=== PATIENT | female | born 1960 | race African-American/Black ===

== ENCOUNTER 2016-09-06 11:55 | Emergency (ER) | payer MEDICAID ==
[~2016-09-06] VITALS: Ht 160 cm; Wt 128.8 kg
[~2016-09-06 11:55] MED LIST: AMLODIPINE BES2.5 MG ORAL; IBUPROFEN600 MG ORAL
[2016-09-06] MEDS ORDERED: Acetaminophen 500mg (ES) tab ORAL ONE (12:45)
[2016-09-06] MEDS ORDERED: Ketorolac 60mg Inj IM ONE (12:45)
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
[2016-09-06] MEDS ORDERED: TYLENOL EXTRA500 MG ORAL (13:52)
[2016-09-06] MEDS ORDERED: CYCLOBENZAPRINE10 MG ORAL (13:52)
[2016-09-06 14:03] VITALS: BP 120/80
--- NOTE | 2016-09-09 15:53 | Diagnostic Imaging Report ---
Indications: Right knee pain Technique: Views right knee. Findings: Comparison: None No fracture, dislocation, joint space widening or effusion, lytic destruction, periosteal reaction , surrounding soft tissue swelling/foreign body/gas, or other acute changes are identified. Osteophytes margins of patellofemoral and knee joint spaces. Patellofemoral joint space, medial knee joint compartment narrowing. No other chronic changes are demonstrated. IMPRESSION: No evidence of acute abnormality Osteoarthritis
== END 2016-09-06 14:03 | disposition home or self-care (01) ==
LOC: EMR 12:42
DX: S83.91XA Sprain of unspecified site of right knee, initial encounter (principal); M62.830 Muscle spasm of back; V43.52XA Car driver injured in collision with other type car in traffic accident, initial encounter; Y92.410 Unspecified street and highway as the place of occurrence of the external cause; J45.909 Unspecified asthma, uncomplicated; I10 Essential (primary) hypertension
CPT/HCPCS: 96372; 99284